=== PATIENT | female | born 1950 | race Caucasian/White ===

== ENCOUNTER 2018-04-03 00:59 | Inpatient (IN) | payer MEDICARE, OTHER ==
[2018-04-02 16:05] LABS: INR 0.99
[2018-04-03] VITALS (13 sets, daily range): BP systolic 88–127; BP diastolic 50–73
[~2018-04-03] VITALS: Ht 167.6 cm; Wt 65.8 kg
[~2018-04-03 00:59] MED LIST: ASCO1TAB5 PO; B CO1TAB16 PO; CITA-145 PO; ESTR0.5T16 PO; GLUC1TAB35 PO; LEVO-3 PO; MECO5000 PO; MEGE40TA19 PO; MULT-1335 PO; PROG200C PO; [UNRECOGNIZED DRUG - CODE] PO
[2018-04-03] MEDS ORDERED: PROPOFOL EMUL(*) 10MG/ML 20 ML 20 ML ONE (07:02)
[2018-04-03] MEDS ORDERED: DEXAMETHASONE SOD 4 MG/ML VIAL ONE (07:02)
[2018-04-03] MEDS ORDERED: LIDOCAINE MPF 1% 5 ML VIAL ONE (07:02)
[2018-04-03] MEDS ORDERED: METOCLOPRAMIDE 10 MG/2 ML SDV ONE (07:02)
[2018-04-03] MEDS ORDERED: ONDANSETRON 4 MG/2 ML VIAL ONE (07:02)
[2018-04-03] MEDS ORDERED: ROCURONIUM BROM 10 MG/ML 10 ML ONE (07:09)
[2018-04-03] MEDS ORDERED: fentaNYL CITR 250 MCG/5 ML AMP ONE (07:35)
[2018-04-03] MEDS ORDERED: NORMOSOL R SOLN(*) 1000 ML BAG 1,000 ML IV PRN (08:30)
[2018-04-03] MEDS ORDERED: BACITRACIN 50000 UNIT/VIAL 100,000 UNIT in NS 0.9% 3000 ML IRRIGATION BAG 3,000 ML IR ONE (08:30)
[2018-04-03] MEDS ORDERED: ROPIVACAINE/EPI/CLONIDINE/KET 50 ML SYRINGE INJ ONE (08:30)
[2018-04-03] MEDS ORDERED: CELECOXIB 200 MG CAP PO ONE (08:30)
[2018-04-03] MEDS ORDERED: MIDAZOLAM 2 MG/2 ML VIAL IVP PRN (08:30)
[2018-04-03] MEDS ORDERED: ceFAZolin(*) 2GM/D5W 50ML 50 ML IVPB ONE (08:30)
[2018-04-03] MEDS ORDERED: LIDOCAINE/SOD BICARB 8.4% SYR ID ONE (08:30)
[2018-04-03] MEDS ORDERED: FAMOTIDINE 20 MG TAB PO ONE (08:30)
[2018-04-03] MEDS ORDERED: TRANEXAMIC AC 1000 MG/10ML SDV 1,000 MG in DEXTROSE 5% 50 ML BAG 50 ML IV ONE (08:30)
[2018-04-03] MEDS ORDERED: PREGABALIN 150 MG CAPSULE PO ONE (08:30)
[2018-04-03] MEDS ORDERED: ACETAMINOPHEN 500 MG TAB PO ONE (08:30)
[2018-04-03] MEDS ORDERED: ROPIVACAINE 0.2% 20 ML VIAL ONE (08:41)
[2018-04-03] MEDS ORDERED: LIDO/EPI 2% MPF 1:200,000 20ML ONE (08:41)
[2018-04-03] MEDS ORDERED: ACETAMINOPHEN(*)1000 MG/100 ML 100 ML IVPB ONE (09:19)
[2018-04-03] MEDS ORDERED: ePHEDrine 25 MG/5 ML DISP.SYR IVP ONE (09:50)
[2018-04-03] MEDS ORDERED: SUGAMMADEX SOD 200 MG/2 ML SDV ONE (10:29)
[2018-04-03] MEDS ORDERED: fentaNYL CITR 100 MCG/2 ML AMP ONE ×2 (12:02→12:32)
[2018-04-03] MEDS ORDERED: diphenhydrAMINE 25 MG CAP PO PRN (12:10)
[2018-04-03] MEDS ORDERED: PROMETHAZINE 25 MG/ML 1 ML AMP IVP PRN (12:10)
[2018-04-03] MEDS ORDERED: diphenhydrAMINE 50 MG/ML VIAL IVP PRN (12:10)
[2018-04-03] MEDS ORDERED: FLUSH 10 ML SYR IVP PRN (12:10)
[2018-04-03] MEDS ORDERED: BISACODYL 10 MG SUPP PR PRN (12:10)
[2018-04-03] MEDS ORDERED: LR 1000 ML BAG 1000 ML IV PRN (12:10)
[2018-04-03] MEDS ORDERED: MAGNESIUM CITRATE 300 ML BTL PO PRN (12:10)
[2018-04-03] MEDS ORDERED: MAGNESIUM HYDROXIDE* 30ML UDCP PO PRN (12:10)
[2018-04-03] MEDS ORDERED: ONDANSETRON 4 MG/2 ML VIAL IVP PRN (12:10)
[2018-04-03] MEDS ORDERED: ZOLPIDEM TARTRATE 5 MG TAB PO PRN (12:10)
[2018-04-03] MEDS ORDERED: HYDROmorphone HCL 2 MG/ML SDV IVP PRN (12:10)
--- NOTE | 2018-04-03 12:32 | RADIOLOGY IMAGING REPORT ---
FACILITY: [facility] PATIENT NAME: Cassi Stratton : 1950 MR: [id number] V: [id number] EXAM DATE: ORDERING PHYSICIAN: BOB STEWART TECHNOLOGIST: Location: [facility] - [place] Patient: Cassi Stratton : 1950 Visit/Account:[id number] Date of Sevice: 04/03/2018 SHOULDER 1 VIEW RIGHT HISTORY: S/P REVERSE TOTAL SHOULDER ARTHROPLASTY, CHECK PLACEMEN AP FILM OF RIGHT SHOULDER FINDINGS: There is reverse shoulder arthroplasty. Well-positioned proximal humeral and glenoid components. No fracture or loosening of the orthopedic hardware. Alignment well-maintained. Mild DJD changes at the AC joint. IMPRESSION: 1. Right shoulder reverse arthroplasty with no obvious acute pathology Report Dictated By: Benitez Cruz MD at 04/03/2018 12:27 PM Report E-Signed By: Benitez Cruz MD at 04/03/2018 12:28 PM WSN:[email or web address]
--- NOTE | 2018-04-03 12:42 | OPERATIVE REPORT 1 ---
EVENT DATE: April 03, 2018 SURGEON: Ata Branham MD ANESTHESIOLOGIST: Blayne Morrell MD ANESTHESIA: General LMA. SAFETY SEALER: Jasmeet Alamo PA-C PREOPERATIVE DIAGNOSIS Right rotator cuff tear arthropathy. POSTOPERATIVE DIAGNOSIS Right rotator cuff tear arthropathy. PROCEDURE PERFORMED Right reverse total shoulder arthroplasty. FINDINGS Patient has a significant amount of tearing within the rotator cuff but not a tremendous amount of arthritis but the rotator cuff was not amenable for repair as it was retracted past the level of the glenoid. ESTIMATED BLOOD LOSS 150 mL. DRAINS None. COMPLICATIONS None. TOURNIQUET TIME Not applicable. IMPLANTS USED DJO reverse total shoulder arthroplasty with a standard baseplate, four screws in the baseplate, which were locking screws, 32/-4 glenoid head with a retaining screw and a size 8 stem with standard stem and 4 mm poly. SPECIMENS None. INDICATIONS AND HISTORY This patient is a 67-year old female who presented to my clinic for evaluation of right shoulder pain and irritation. She had continued pain and irritation despite conservative management and an MRI revealed that she had a large rotator cuff tear and it was retracted all the way back to the level of the glenoid. We talked about either trying to repair it or doing a reverse total shoulder arthroplasty. She said she would like to just go ahead with reverse shoulder arthroplasty given her age and activity level and trying to reach overhead. I thought that was very reasonable so we got her set up to do this today, March 31, 2018. The risks and benefits were discussed with the patient and informed consent was obtained at the last clinic visit. DESCRIPTION OF PROCEDURE The patient was brought into the operating room. She and the procedure were both verified. She was placed supine on the operating table and induced intubated by anesthesia. She was then put in a beach chair position and the right arm was prepped and draped in the usual fashion and a time-out was observed, verifying the correct patient and procedure. After injecting 2% lidocaine with epinephrine, I was then able to make a curvilinear incision over the deltopectoral interval and go through the skin and subcutaneous tissue. Once I was able to do this, I got down to the deltopectoral interval and identified the cephalic vein. I then retracted the cephalic vein to the lateral side with the deltoid and then went down to the clavipectoral fascia. Once I identified the clavipectoral fascia, I was able to then clear this off and perform a biceps tenotomy in this area of the pec in order to retain the biceps in that area. This was then followed by take-down of the subscapularis and tagging it for later repair. I then was able to dislocate the shoulder with an extended and externally rotated moment and then I gained access to the extended shoulder. I then cut the head off with a reciprocating saw without any major difficulty and removed any osteophytes in that area, which were very little. I then turned attention to the glenoid, where I put a dura retractor in the posterior aspect of the glenoid. This was then followed by an anterior retractor and then removing the rest of the biceps tendon up on the top part as well as the glenoid labrum. Once I removed the labrum, I then labeled the cartilage to get a perfectly centered drill bit and then we drilled straight through the center and had good bone adequate amount to put in a glenoid baseplate. This was then followed by putting in a standard tamp from the DJO system and then reaming over the top of it and then putting in the standard baseplate. The baseplate had excellent fixation associated with this as I tried to make a final turn and just turn the scapula as it had excellent fixation within the shoulder blade itself. I then put in four screws with two 32's, an 18 and a 28 length screws throughout the glenoid itself in order to fixate in place and all had excellent purchase. I then put in the 32/-4 glenosphere and then the set screw without any difficulty and irrigated with copious amounts of saline using pulsatile lavage, which I did throughout the case. I then turned attention back to the humerus, where I was able to probe the canal with the reamers and then find that it went up to about 10 so, therefore, an 8 stem was chosen. We then reamed the proximal aspect of the humerus and passed the stitches. We passed five stitches in total across the proximal aspect of the humerus in order to repair the subscap. This was then followed by placement of the final prosthesis in place and then trialing it with a 4 mm poly. This was found to be good so, therefore, we put on the final poly without any difficulty. I then repaired the subscap without any issues and then irrigated again with copious amount of saline, closed the deltopectoral interval with an 0 Quill stitch followed by 2-0 Quill in the subcutaneous tissue and 4-0 Monocryl and subcuticular running stitch with the ends tied inside and then Steri-Strips along the edges. We also put a joint cocktail in, trying to anesthetize the patient for pain control also. A soft dressing was applied and the patient was put in a sling. She was awakened and extubated and she will be transferred to the floor, where she will stay overnight per Medicare regulations. ILIA
--- NOTE | 2018-04-03 13:35 | Hospitalist Consultation ---
History of Present Illness Requesting Physician Dr. Branham Reason for Consult medical management Chief Complaint s/p right reverse total shoulder replacement History of Present Illness She was admitted s/p right reverse total shoulder replacement. It is reported the surgery went well and without complication. History Problems: (1) Depression Status: Chronic (2) Hypothyroidism Status: Chronic Home Meds Reported Medications Megestrol Acetate (MEGESTROL ACETATE) 40 Mg Tablet, 40 MG PO Q6H PRN for BLEEDING 03/27/18 Ascorbic Acid/Vitamin E/Biotin (Hair Skin Nails-Biotin Gummies) 1 Each Tab.chew, 1 TAB PO DAILY 03/27/18 Glucosamine/Msm/Chondroitin A (GLUCOSAMINE CHONDROIT MSM TAB) 1 Each Tablet, 1500 MG PO DAILY 03/27/18 Mecobalamin (B-12) 5,000 Mcg Tab.rapdis, 5000 MCG PO DAILY 03/27/18 B Complex With Vitamin C (SUPER B COMPLEX-VITAMIN C) 1 Each Tablet, 1 EACH PO DAILY 03/27/18 Niacin (NIACIN) 1,000 Mg Tablet.er, 1000 MG PO QDAY 03/27/18 Multivitamin With Minerals (MULTIPLE VITAMIN) 1 Each Tablet, 1 EACH PO DAILY, TAB 03/27/18 Levothyroxine Sodium (LEVOTHYROXINE SODIUM) 100 Mcg Tablet, 100 MCG PO QDAY, TAB 03/27/18 Estradiol (ESTRADIOL) 0.5 Mg Tablet, 0.5 MG PO DAILY 03/27/18 Citalopram Hydrobromide (CITALOPRAM HBR) 20 Mg Tablet, 10 MG PO QDAY 03/27/18 Discontinued Reported Medications Progesterone,Micronized (PROGESTERONE) 200 Mg Capsule, 200 MG PO DAILY, CAPSULE 03/27/18 Allergies: Coded Allergies: No Known Drug Allergies (Unverified , 03/27/18) Patient History: FH: brain aneurysm MOTHER FH: diabetes mellitus FATHER FH: heart disease FATHER FH: ovarian cancer MOTHER Hx Smoking: No Exposure to Second Hand Smoke?: No Caffeine Intake: Coffee, Tea Caffeine/Cups Per Day: 3 CUP Hx Alcohol Use: Yes Alcohol Used: Wine Hx Substance Use Disorder: No History of IV Drug Use: No Review of Systems All Systems Reviewed/Normal: Yes, Except as Noted Exam Vital Signs Vital Signs Date Time Temp Pulse Resp B/P (MAP) Pulse Ox O2 Delivery O2 Flow Rate FiO2 04/03/18 13:15 75 127/72 (90) 97 Room Air 04/03/18 13:05 97.8 16 General Appearance: Alert, Awake, No Acute Distress, Afebrile Neuro: No Gross deficits Cardiovascular: Regular Rate and Rhythm Respiratory: No Respiratory Distress, Clear to Auscultation GI: Abd Soft and Non-Tender Psych: Alert & Oriented X3, Appropriate Mood & Affect Assessment and Plan Problems: (1) Status post reverse total replacement of right shoulder Status: Acute Assessment & Plan: Followed by Dr. Branham. (2) Hypothyroidism Status: Chronic Assessment & Plan: She is on chronic treatment with Levothyroxine. Continue. (3) Depression Status: Chronic Assessment & Plan: She is on chronic treatment with Citalopram. Continue. Venous Thromboembolism Antithrombotics Is Pt On Any Antithrombotics?: No PACO NAVARRO Apr 03, 2018 13:35
--- NOTE | 2018-04-03 14:45 | NUR ---
Occupational Therapy Impression Pt alert and agreeable to initial OT evaluation. SpO2 WNL on room air. Pt reports no pain. Reviewed precautions, wear/fit of sling, and ther ex per protocol. Pt with no further questions/concerns at this time. Plan to address ADLs and further ther ex in tomorrow AM session prior to discharge. Occupational Therapy Goals Patient's Goal
[2018-04-03] MEDS: ceFAZolin(*) 1 GM VIAL 1 GM in NS(*) 0.9% 100 ML ADDVANT BAG 100 ML IVPB SCH (18:21)
[2018-04-04 02:21] VITALS: BP 112/52
[2018-04-04] MEDS: ceFAZolin(*) 1 GM VIAL 1 GM in NS(*) 0.9% 100 ML ADDVANT BAG 100 ML IVPB SCH ×2 (02:28→10:12)
[2018-04-04] MEDS ORDERED: LEVOTHYROXINE SOD 0.1 MG TAB PO SCH (06:00)
[2018-04-04 07:33] VITALS: BP 92/51
--- NOTE | 2018-04-04 08:37 | NUR ---
Pt. not aware she needed to take hospital medication. Took her home medication at 0830, 10mg citalopram.
[2018-04-04] MEDS ORDERED: OXYC-865 PO (08:41)
[2018-04-04] MEDS ORDERED: CITALOPRAM HYDROBROM 20 MG TAB PO SCH (09:00)
--- NOTE | 2018-04-04 09:51 | NUR ---
Occupational Therapy Impression Pt alert and agreeable to OT tx. Reporting pain at 05/06, ice applied. Reviewed ther ex per protocol, precautions, ADLs, and wear/fit of sling. Mod (I) UB/LB dressing. Independent bed mobility. Independent ambulation. Pt has met skilled OT goals. No further questions/concerns for OT at this time. Occupational Therapy Goals Patient's Goal
[2018-04-04 09:55] VITALS: Ht 167.6 cm; Wt 65.8 kg
[2018-04-04 10:56] VITALS: BP 95/51
--- NOTE | 2018-04-04 13:22 | Hospitalist Progress Note ---
Subjective Progress Notes Subjective She was admitted s/p shoulder replacement. She had no acute events overnight. She has no complaints this morning. Patient Complains of: Cardiovascular: No: Chest Pain Respiratory: No: Shortness of Breath Physical Exam Vital Signs Date Time Temp Pulse Resp B/P (MAP) Pulse Ox O2 Delivery O2 Flow Rate FiO2 04/04/18 10:56 97.9 56 16 95/51 (66) 95 Room Air 04/03/18 22:32 Intake and Output0 04/04/18 07:00 Intake Total 2652 ml Balance 2652 ml Intake Oral 950 ml IV Total 1702 ml # Voids 4 General Appearance: Alert, Awake, No Acute Distress, Afebrile Neuro: No Gross deficits Cardiovascular: Regular Rate and Rhythm Respiratory: No Respiratory Distress, Clear to Auscultation Psych: Alert & Oriented X3, Appropriate Mood & Affect Result Diagram: 04/04/18 0523 Assessment and Plan Problems: (1) Status post reverse total replacement of right shoulder Status: Acute Assessment & Plan: Followed by Dr. Branham. (2) Hypothyroidism Status: Chronic Assessment & Plan: She is on chronic treatment with Levothyroxine. Continue. (3) Depression Status: Chronic Assessment & Plan: She is on chronic treatment with Citalopram. Continue. Exam Sepsis Risk: No Definite Risk PACO NAVARRO Apr 04, 2018 13:22
== END 2018-04-04 12:55 | disposition home or self-care (01) | DRG 483 ==
LOC: OR 00:59 → MED 13:00
PROVIDERS: ADMIT Orthopaedic Surgery; ATTEND Orthopaedic Surgery
PROC: 0RRJ00Z Replacement of Right Shoulder Joint with Reverse Ball and Socket Synthetic Substitute, Open Approach (ICD-10-PCS; principal; 2018-04-03 09:33)
DX: M19.011 Primary osteoarthritis, right shoulder (principal); M75.121 Complete rotator cuff tear or rupture of right shoulder, not specified as traumatic; E03.9 Hypothyroidism, unspecified; F32.9 Major depressive disorder, single episode, unspecified
CPT/HCPCS: 36415; 85014; 85018; 85610; 86850; 86900; 86901; 97165; A4565; C1776; J0131; J0690; J1100; J1170; J2001; J2405; J2704; J2765; J2795; J3010